=== PATIENT | male | born 1970 | race Caucasian/White ===

== ENCOUNTER 2016-12-18 14:33 | Emergency (ER) | payer OTHER ==
[~2016-12-18] VITALS: Ht 175.3 cm; Wt 121.7 kg
[2016-12-18 14:38] VITALS: TEMP 36.8; Ht 175.3 cm; Wt 121.7 kg
[2016-12-18] MEDS ORDERED: OXYCODONE HCL IR 5 MG TAB (IMMEDIATE RELEASE) PO STA (14:49)
[2016-12-18] MEDS ORDERED: XYLOCAINE 1%/SOD BICARB 20 ML VIAL INFIL ONE (15:00)
[2016-12-18] MEDS ORDERED: DIPHTHERIA/TETANUS/PERTUSSIS 0.5 ML SYR/VIAL IM. ONE (15:00)
--- NOTE | 2016-12-18 15:16 | DIAGNOSTIC IMAGING REPORT ---
LEFT HAND 3 VIEWS CLINICAL HISTORY: Left hand injury. FINDINGS: 3 views of the left hand are obtained. No prior studies are available for comparison at the time of dictation. The skeletal structures are well mineralized. There is a nondistracted spiral fracture through the distal shaft of the fifth metacarpal. There is a distracted and angulated horizontal fracture through the proximal shaft of the fifth proximal phalanx. There is also a distracted fracture through the distal shaft/top of the fourth distal phalanx. Significant soft tissue edema is present throughout the ulnar aspect of the hand. The joint spaces of the hand appear preserved. No radiodense foreign body is identified. IMPRESSION: Fractures of the fourth distal phalanx, the fifth proximal phalanx, and the fifth metacarpal as above with significant overlying soft tissue edema. Electronically signed by: Paul Blanca M.D. 12/18/2016 3:14 PM Dictated Date/Time: 12/18/2016 3:11 PM
[2016-12-18] MEDS ORDERED: MoRPHine SULFATE 10 MG/ML CARP/VIAL IV STA (15:34)
[2016-12-18] MEDS ORDERED: CEFTRIAXONE SOD INJ 1 GM ADDVIAL IV STA (15:34)
[2016-12-18 16:00] LABS: BASO % 0.3 %; BASO ABS # 0.02 K/uL (0-0.2); COMPLETE YES; EOS % 0.9 %; HEMATOCRIT 39.8 % (42-52); IG% 0.1 %; LYMPH % 14.2 %; LYMPH ABS # 1.12 K/uL (1.2-3.4); MEAN CELL VOLUME 90.5 fL (80-100); MEAN CORPUSCULAR HEMOGLOBIN 31.1 pg (25-34); MEAN CORPUSCULAR HGB CONC 34.4 g/dl (32-36); MEAN PLATELET VOLUME 10.2 fL (7.4-10.4); NEUT % 76.5 %; PLATELET COUNT 180 K/uL (130-400); WHITE BLOOD COUNT 7.86 K/uL (4.8-10.8)
[2016-12-18 16:07] LABS: BUN/CREATININE RATIO 24.6 (10-20); CALCIUM 8.8 mg/dl (8.5-10.1); CREATININE 0.81 mg/dl (0.60-1.40)
[2016-12-18] MEDS ORDERED: OXYC1TAB3 PO (16:18)
[2016-12-18] MEDS ORDERED: CEPH500C PO (16:18)
[2016-12-18 16:45] VITALS: BP 159/91; PULSE 67; O2SAT 97
--- NOTE | 2016-12-18 19:12 | EMERGENCY ROOM VISIT NOTE ---
History First contact with patient: 14:43 Chief Complaint: LACERATION/CUT (SUT/DERMABOND) Stated Complaint: CUT HAND- WORK RELATED Nursing Triage Summary: Patient got his left hand caught in a belt at work. missing skin on left hand and concerned it may be broken. Hand is bandaged prior to arrival, clean dry and intact. 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 The patient reports that he was trying to check for an air leak, and stuck his hand into the area for inspection when the hand got caught between the belt and lito, pulling his hand through. The patient immediately rated his pain a 10 out of 10, and now rates his discomfort a 6 out of 10. The patient is [id number]. He is uncertain of his last tetanus immunization. Review of Systems 10 system review was performed and was negative except for pertinent positives and negatives as indicated in history of present illness Past Medical/Surgical History Medical Problems: (1) No significant past medical history Surgical Problems: (1) No history of previous surgery Family History Unremarkable Social History Smoking Status: Never Smoker Alcohol Use: occasionally Marital Status: Housing Status: lives with family Occupation Status: employed Current/Historical Medications Scheduled Cephalexin Monohydrate (Keflex), 500 MG PO QID Scheduled PRN Oxycodone Ir (Roxicodone Ir), 1-2 TAB PO Q4H PRN for Pain Physical Exam Vital Signs Date Time Temp Pulse Resp B/P (MAP) Pulse Ox O2 Delivery O2 Flow Rate FiO2 12/18/16 16:45 67 16 159/91 97 12/18/16 14:38 36.8 61 16 177/99 98 Room Air Physical Exam CONSTITUTIONAL: Healthy and well nourished. Alert and oriented X 3 with positive affect. Patient appears in mild discomfort from pain. HEENT: Normocephalic, atraumatic. Pupils equal, round and reactive. NECK: Full active range of motion without discomfort. RESPIRATORY: Clear to auscultation bilaterally with no wheezing, crackles, rhonchi or stridor. CARDIOVASCULAR: Regular rate and rhythm with no murmurs, rubs or gallops. MUSCULOSKELETAL: Examination of the left hand shows several lacerations on the volar aspect of the hand. He has a puncture wound over the mid hypothenar eminence, measuring 1 cm. The patient also has a 1 cm laceration over the volar PIP joint of the fifth finger with a finger currently in a flexed position. The patient also has a 1 cm laceration at the volar middle phalanx of the ring finger. Capillary refill of the fingertips is less than 2 seconds. No tenderness to palpation through the wrist region. INTEGUMENTARY: No rash or other significant dermatologic conditions noted. NEUROLOGIC: Left hand and fingers are sensory intact. Medical Decision & Procedures ER Provider Diagnostic Interpretation: My interpretation of left hand x-rays shows multiple fractures, including the tuft of the fourth distal phalanx, an angulated fracture of the fifth proximal phalanx, and nondisplaced fracture of the neck of the fifth metacarpal. Radiologist report is as follows: LEFT HAND 3 VIEWS CLINICAL HISTORY: Left hand injury. FINDINGS: 3 views of the left hand are obtained. No prior studies are available for comparison at the time of dictation. The skeletal structures are well mineralized. There is a nondistracted spiral fracture through the distal shaft of the fifth metacarpal. There is a distracted and angulated horizontal fracture through the proximal shaft of the fifth proximal phalanx. There is also a distracted fracture through the distal shaft/top of the fourth distal phalanx. Significant soft tissue edema is present throughout the ulnar aspect of the hand. The joint spaces of the hand appear preserved. No radiodense foreign body is identified. IMPRESSION: Fractures of the fourth distal phalanx, the fifth proximal phalanx, and the fifth metacarpal as above with significant overlying soft tissue edema. Laboratory Results 12/18/16 15:30 Red Blood Count 4.40, Mean Corpuscular Volume 90.5, Mean Corpuscular Hemoglobin 31.1, Mean Corpuscular Hemoglobin Concent 34.4, Mean Platelet Volume 10.2, Neutrophils (%) (Auto) 76.5, Lymphocytes (%) (Auto) 14.2, Monocytes (%) (Auto) 8.0, Eosinophils (%) (Auto) 0.9, Basophils (%) (Auto) 0.3, Neutrophils # (Auto) 6.01, Lymphocytes # (Auto) 1.12, Monocytes # (Auto) 0.63, Eosinophils # (Auto) 0.07, Basophils # (Auto) 0.02 12/18/16 15:30 Test 12/18/16 15:30 White Blood Count 7.86 K/uL (4.8-10.8) Red Blood Count 4.40 M/uL (4.7-6.1) Hemoglobin 13.7 g/dL (14.0-18.0) Hematocrit 39.8 % (42-52) Mean Corpuscular Volume 90.5 fL (80-100) Mean Corpuscular Hemoglobin 31.1 pg (25-34) Mean Corpuscular Hemoglobin Concent 34.4 g/dl (32-36) Platelet Count 180 K/uL (130-400) Mean Platelet Volume 10.2 fL (7.4-10.4) Neutrophils (%) (Auto) 76.5 % Lymphocytes (%) (Auto) 14.2 % Monocytes (%) (Auto) 8.0 % Eosinophils (%) (Auto) 0.9 % Basophils (%) (Auto) 0.3 % Neutrophils # (Auto) 6.01 K/uL (1.4-6.5) Lymphocytes # (Auto) 1.12 K/uL (1.2-3.4) Monocytes # (Auto) 0.63 K/uL (0.11-0.59) Eosinophils # (Auto) 0.07 K/uL (0-0.5) Basophils # (Auto) 0.02 K/uL (0-0.2) RDW Standard Deviation 42.8 fL (36.4-46.3) RDW Coefficient of Variation 12.9 % (11.5-14.5) Immature Granulocyte % (Auto) 0.1 % Immature Granulocyte # (Auto) 0.01 K/uL (0.00-0.02) Anion Gap 7.0 mmol/L (3-11) Est Creatinine Clear Calc Drug Dose 148.4 ml/min Estimated GFR () 124.4 Estimated GFR (Non- 107.3 BUN/Creatinine Ratio 24.6 (10-20) Calcium Level 8.8 mg/dl (8.5-10.1) The above labs were reviewed. Medications Administered Medications (Trade) Dose Ordered Sig/Jseus Route Start Time Stop Time Status Last Admin Dose Admin Oxycodone HCl (Roxicodone Immediate Rel Tab) 5 mg NOW STAT PO 12/18/16 14:49 12/18/16 14:52 DC 12/18/16 15:08 5 MG Diphtheria/ Pertussis/Tetanus Vacc (Adacel Inj) 0.5 ml ONCE ONCE IM. 12/18/16 15:00 12/18/16 15:01 DC 12/18/16 15:09 0.5 ML Ceftriaxone Sodium (Rocephin Inj) 1 gm NOW STAT IV 12/18/16 15:34 12/18/16 15:35 DC 12/18/16 15:56 1 GM Morphine Sulfate (MoRPHine SULFATE INJ) 8 mg NOW STAT IV 12/18/16 15:34 12/18/16 15:35 DC 12/18/16 15:55 8 MG Procedure Laceration wound exploration was performed under digital block anesthesia of the fourth and fifth fingers, and local anesthesia for the palm laceration. Using buffered 1% lidocaine without epinephrine, good anesthesia was administered. The wounds were peripherally cleansed with iodine, vancomycin pressure irrigated with normal saline. The palm wound was first explored without evidence for foreign debris before approximation using 4-0 nylon simple interrupted sutures. Attention was then directed to the finger lacerations over the volar PIP joint. Exploration of the wounds ED Course Patient history and physical exam were performed. Nurse's notes were reviewed. The patient was initially administered OxyIR 5 mg for pain. He was also administered Adacel IM. X-rays of the left hand shows multiple fractures and close proximity to lacerations, concerning for open fractures. The patient also has an angulated fracture of the proximal phalanx of the fifth finger, and tuft fracture of the ring finger. Because of concern for open fractures, IV access was established, and labs were drawn. The patient was administered Rocephin 1 g IV infusion, along with IV morphine for pain. This reduced the patient's pain to a 3 out of 10. The case was further discussed with Dr. Mayorga, orthopedic surgeon forming yardage control operator who reviewed x-rays and requested antibiotic ointment dressings. He will see the patient in his office tomorrow morning. The patient was provided prescriptions for Keflex and OxyIR 5 mg. The patient was happy with plan of care, and voiced understanding of all discharge instructions. Medical Decision Medication Reconcilliation Current Medication List: was personally reviewed by me Blood Pressure Screening Patient's blood pressure: Normal blood pressure Impression Primary Impression: Multiple open fractures of left hand bones Additional Impression: Work related injury Departure Information Prescriptions Oxycodone Ir (Roxicodone Ir) 5 Mg Tab 1-2 TAB PO Q4H Y for Pain, #36 TAB For Initial Treatment Prov: Aldo Blackwood PA 12/18/16 Cephalexin Monohydrate (Keflex) 500 Mg Cap 500 MG PO QID for 7 Days, #28 CAP Prov: Aldo Blackwood PA 12/18/16 Referrals No Doctor, Assigned (PCP) Patient Instructions My [facility] Problem Qualifiers Primary Impression: Multiple open fractures of left hand bones Encounter type: initial encounter Qualified Codes: S62.92XB - Unspecified fracture of left wrist and hand, initial encounter for open fracture
--- NOTE | 2016-12-21 07:49 | EDITING REQUIRED CODING QUERY ---
CODING QUERY To promote full compliance with coding requirements relating to patient care, provider participation is requested in all cases of clin tech uncertainty. Please assist us with the question(s) below: Coding Question(s): Question if finger lacerations were closed. Note states the puncture wound was closed and that the finger wounds were, explored but does not say if they were closed as well. Please clarify. Physician's Response(s): All lacerations and puncture wounds are open wounds. Thank you Lucille Saab Principal Diagnosis: "_that condition established after study, to be chiefly responsible for occasioning the admission of the patient to the hospital for care." Co-Existing Principal Diagnosis: "_when two or more diagnoses equally meet the criteria for principal diagnosis as determined by the circumstances of admission, diagnostic work up, and/or therapy provided, and the Alphabetic Index, Tabular List, or another coding guideline does not provide sequencing direction, any one of the diagnoses may be sequenced first." "When the physician has documented what appears to be a current diagnosis in the body of the record, but has not included the diagnosis in the final diagnostic statement, the physician should be asked whether the diagnosis should be added." ([facility] 2 QTR90. p3-4)
[2016-12-21] MEDS ORDERED: OXYC-57 PO (18:29)
--- NOTE | 2016-12-25 13:56 | EDITING REQUIRED CODING QUERY ---
CODING QUERY To promote full compliance with coding requirements relating to patient care, provider participation is requested in all cases of data coder operator uncertainty. Please assist us with the question(s) below: Coding Question(s): Question if the finger lacerations were closed with sutures. Note states the puncture wound was closed and that the finger wounds were explored, but does not state if they were closed (with sutures) as well. Please clarify if the finger wounds were also closed. (ie. With sutures or dermabond) Physician's Response(s): All wounds were open and closed with sutures Thank you Lucille Saab Principal Diagnosis: "_that condition established after study, to be chiefly responsible for occasioning the admission of the patient to the hospital for care." Co-Existing Principal Diagnosis: "_when two or more diagnoses equally meet the criteria for principal diagnosis as determined by the circumstances of admission, diagnostic work up, and/or therapy provided, and the Alphabetic Index, Tabular List, or another coding guideline does not provide sequencing direction, any one of the diagnoses may be sequenced first." "When the physician has documented what appears to be a current diagnosis in the body of the record, but has not included the diagnosis in the final diagnostic statement, the physician should be asked whether the diagnosis should be added." ([facility] 2 QTR90. p3-4)
== END 2016-12-18 16:48 | disposition home or self-care (01) ==
LOC: C.EDB 14:35 → C.EDD 16:48
DX: S62.635B Displaced fracture of distal phalanx of left ring finger, initial encounter for open fracture (principal); S62.617B Displaced fracture of proximal phalanx of left little finger, initial encounter for open fracture; S62.307B Unspecified fracture of fifth metacarpal bone, left hand, initial encounter for open fracture; W31.9XXA Contact with unspecified machinery, initial encounter; Y99.0 Civilian activity done for income or pay; Z23 Encounter for immunization

== ENCOUNTER → 2016-12-19 | Outpatient (CLI) | payer OTHER ==
[~2016-12-19] MED LIST: CEPH500C PO; OXYC-57 PO; OXYC1TAB3 PO
[2016-12-19 16:37] LABS: BASO % 0.4 %; BASO ABS # 0.03 K/uL (0-0.2); COMPLETE YES; EOS % 1.1 %; HEMATOCRIT 40.1 % (42-52); IG% 0.3 %; LYMPH ABS # 2.05 K/uL (1.2-3.4); MEAN CELL VOLUME 91.1 fL (80-100); MEAN CORPUSCULAR HEMOGLOBIN 31.6 pg (25-34); MEAN CORPUSCULAR HGB CONC 34.7 g/dl (32-36); MEAN PLATELET VOLUME 10.5 fL (7.4-10.4); MONO % 9.6 %; NEUT % 62.6 %; PLATELET COUNT 181 K/uL (130-400); WHITE BLOOD COUNT 7.88 K/uL (4.8-10.8)
[2016-12-19 16:47] LABS: BLOOD UREA NITROGEN 12 mg/dl (7-18); BUN/CREATININE RATIO 13.4 (10-20); CALCIUM 9.2 mg/dl (8.5-10.1); CARBON DIOXIDE 29 mmol/L (21-32); CHLORIDE 104 mmol/L (98-107); CREATININE 0.86 mg/dl (0.60-1.40); GLUCOSE 89 mg/dl (70-99); SODIUM 139 mmol/L (136-145)
== END | disposition home or self-care (01) ==
LOC: C.LABBC 12:32
PROVIDERS: ATTEND Orthopaedic Surgery
DX: Z01.812 Encounter for preprocedural laboratory examination (principal); S62.609A Fracture of unspecified phalanx of unspecified finger, initial encounter for closed fracture; X58.XXXA Exposure to other specified factors, initial encounter